=== PATIENT | female | born 1955 | race Caucasian/White ===

== ENCOUNTER 2021-05-19 17:26 | Emergency (ER) | payer MEDICARE, OTHER ==
[2021-05-19] MEDS ORDERED: ACETAMINOPHEN TAB 500 MG TAB PO STA (22:09)
[2021-05-19] MEDS ORDERED: SODIUM CHLORIDE 0.9% 500 ML 500 ML IV ONE (22:09)
--- NOTE | 2021-05-19 22:11 | ED ---
General Adult HPI - General Chief complaint: Upper Respiratory Infection Stated complaint: Covid +, LUCIANA Time Seen by Provider: 05/19/21 21:58 Source: patient, RN notes reviewed, old records reviewed Mode of arrival: ambulatory Limitations: no limitations - History of Present Illness Initial comments: 65 yo female presenting with cough congestion, fever. Patient was diagnosed with coronavirus by home testing yesterday. This is when her symptoms began. She's had a mild dyspnea with cough. No significant vomiting. Patient is otherwise quite healthy with no chronic medical conditions. - Related Data Allergies Allergy/AdvReac Type Severity Reaction Status Date / Time No Known Allergies Allergy Verified 05/19/21 20:21 Review of Systems ROS Statement: Those systems with pertinent positive or pertinent negative responses have been documented in the HPI. ROS Other: All systems not noted in ROS Statement are negative. Past Medical History Past Medical History: No Reported History History of Any Multi-Drug Resistant Organisms: None Reported Past Surgical History: No Surgical Hx Reported Past Psychological History: No Psychological Hx Reported Smoking Status: Never smoker Past Alcohol Use History: None Reported Past Drug Use History: None Reported General Exam Limitations: no limitations General appearance: alert, in no apparent distress Head exam: Present: atraumatic, normocephalic Eye exam: Present: normal appearance, PERRL ENT exam: Present: mucous membranes dry Neck exam: Present: normal inspection. Absent: tenderness, meningismus Respiratory exam: Present: rales. Absent: respiratory distress Cardiovascular Exam: Present: regular rate, normal rhythm GI/Abdominal exam: Present: soft. Absent: distended, tenderness, guarding Extremities exam: Present: normal inspection, normal capillary refill Neurological exam: Present: alert, oriented X3, CN II-XII intact. Absent: motor sensory deficit Psychiatric exam: Present: normal affect, normal mood Skin exam: Present: warm, dry, intact. Absent: cyanosis, diaphoretic Course Vital Signs 05/19/21 20:16 Temperature 100.0 F H Pulse Rate 92 Respiratory 18 Rate Blood Pressure 123/76 O2 Sat by Pulse 95 Oximetry Medical Decision Making - Medical Decision Making Patient does meet for monoclonal antibodies by age. She is transfused medical antibodies in the emergency department. She has a pulse oximeter at home. She will take vitamin D, vitamin C, zinc. Strict return parameters are discussed. She will monitor her oxygen level at home. She will follow with her primary care physician. - Lab Data Lab Results 05/19/21 Range/Units 20:23 Coronavirus (PCR) Detected A (Not Detectd) Disposition Clinical Impression: COVID-19 Disposition: HOME SELF-CARE Condition: Fair Instructions (If sedation given, give patient instructions): Coronavirus Disease 2019 (COVID-19) Additional Instructions: Please monitor your oxygen levels at home. Please return with any worsening or changing symptoms. Please take vitamin C, zinc, vitamin D. Please follow up with the primary care physician. Is patient prescribed a controlled substance at d/c from ED?: No Referrals: Kd Finley DO [Primary Care Provider] - 1-2 days
[2021-05-19] MEDS ORDERED: SODIUM CHLORIDE 0.9% 50 ML IVPB ONE (22:45)
[2021-05-19] MEDS ORDERED: CASIRIVIMAB (REGN10933) (EUA) 600 MG, IMDEVIMAB (REGN10987) (EUA) 600 MG in SODIUM CHLO... IVPB ONE (23:00)
[2021-05-20 00:44] VITALS: BP 118/70; PULSE 82; RESP 16; TEMP 99
== END 2021-05-20 00:45 | disposition home or self-care (01) ==
LOC: EC 17:26
DX: U07.1 COVID-19 (principal)
CPT/HCPCS: 87635; 99283; 96360; Q0244